=== PATIENT | female | born 1950 | race Caucasian/White ===

== ENCOUNTER 2016-06-02 09:46 | Day surgery (SDC) | payer MEDICARE, BC ==
--- NOTE | ~2016-06-02 | EGD ---
EGD REPORT [facility] [address] [id number] NAME: THAD CORTÉS : [birth year] STATUS : REG [facility]#: [id number] AGE: 65 ADM/REG DATE : 06/02/16 MR#: [id number] REPORT SERV DATE: 06/02/16 DICTATED BY: SHAYNA ROD DATE: 06/02/16 REPORT STATUS : Draft [facility]ANS[facility]IBED BY: [facility] DATE: 06/02/16 [facility] Center Patient Name: Thad Cortés Date of : 1950 Attending MD: SHAYNA ROD MD Procedure Date No Time: 06/02/2016 Procedure: Upper GI endoscopy Indications: Iron deficiency anemia, Follow-up of gastrointestinal bleeding Referring MD: Brian Cardenas Medicines: Sedation Required Anesthesia Staff Assistance Complications: No immediate complications. Estimated blood loss: Minimal. Procedure: Pre-Anesthesia Assessment: - ASA Grade Assessment: III - A patient with severe systemic disease. After obtaining informed consent, the endoscope was passed under direct vision. Throughout the procedure, the patient's blood pressure, pulse, and oxygen saturations were monitored continuously. The GIF [id number] was introduced through the mouth, and advanced to the second part of duodenum. The upper GI endoscopy was accomplished without difficulty. The patient tolerated the procedure well. Findings: The examined esophagus was normal. Multiple small angioectasias with stigmata of recent bleeding were found in the gastric antrum. Coagulation for bleeding prevention using argon plasma at 0.5 liters/minute and 20 sanchez was successful. Multiple small angioectasias without bleeding were found in the entire duodenum. Coagulation for bleeding prevention using argon plasma at 0.5 liters/minute and 20 sanchez was successful. Impression: - Normal esophagus. - Multiple recently bleeding angioectasias in the stomach. Treated with thermal therapy. - Multiple non-bleeding angioectasias in the duodenum. Treated with thermal therapy. Recommendation: - Patient has a contact number available for emergencies. The signs and symptoms of potential delayed complications were discussed with the patient. Return to normal activities tomorrow. Written discharge instructions were provided to the patient. EGD REPORT [address] [address] NAME: THAD CORTÉS : [birth year] STATUS : REG [facility] PAT#: [id number] AGE: 65 ADM/REG DATE : 06/02/16 MR#: [id number] REPORT SERV DATE: 06/02/16 DICTATED BY: SHAYNA ROD DATE: 06/02/16 REPORT STATUS : Draft TRANSCRIBED BY: [email or web address] DATE: 06/02/16 - Return to previous diet daily. - Patient has a contact number available for emergencies. The signs and symptoms of potential delayed complications were discussed with the patient. Return to normal activities tomorrow. Written discharge instructions were provided to the patient. - Continue present medications. - Discharge patient to home. Procedure Code(s): --- Professional --- 76172, Esophagogastroduodenoscopy, flexible, transoral; with control of bleeding, any method Diagnosis Code(s): --- Professional --- K31.811, Angiodysplasia of stomach and duodenum with bleeding D50.9, Iron deficiency anemia, unspecified CPT copyright 2013 [employer]. All rights reserved. The codes documented in this report are preliminary and upon hospitality workers review may be revised to meet current compliance requirements. SHAYNA ROD MD 06/02/2016 11:32 AM This report has been signed electronically. Number of Addenda: 0 Note Initiated On: 06/02/2016 11:12 AM Scope Withdrawal Time 0 hours 0 minutes 0 seconds [address] [place] [id number]
[~2016-06-02 09:46] MED LIST: ARMOUR THYRO60 MG PO; CO Q-10100 MG PO; DCN100 PO; DIABET2.5 PO; GGACUDL PO; GLUCOPHAGE1000 MG PO; GLUCPH PO; KLOR-CON 1010 MEQ PO; L40 PO; LEVOTHYROXIN112 MCG PO; MULTIVITAMI1 PO; MYRBETRIQ25 MG PO; PR12.5 PO; PRAVACHOL80 MG PO; PREDFORTE OPH; PROMEGA PO; PROTONIX PO; PROVENTSOL INH; SPIRO50 PO; SUCR PO; TRAZ100 PO; VITAMIN D1000 UNI1 PO; ZOCOR20 PO
== END 2016-06-02 23:59 | disposition home health service (06) ==
LOC: DMU 09:46
PROVIDERS: Internal Medicine Gastroenterology
PROC: 0DJ08ZZ Inspection of Upper Intestinal Tract, Via Natural or Artificial Opening Endoscopic (ICD-10-PCS; principal; 2016-06-02 12:00)
DX: K31.811 Angiodysplasia of stomach and duodenum with bleeding (principal); E66.9 Obesity, unspecified; K21.9 Gastro-esophageal reflux disease without esophagitis; E11.9 Type 2 diabetes mellitus without complications; E03.9 Hypothyroidism, unspecified; E78.00 Pure hypercholesterolemia, unspecified; M19.90 Unspecified osteoarthritis, unspecified site; Z90.710 Acquired absence of both cervix and uterus; Z87.891 Personal history of nicotine dependence; Z98.890 Other specified postprocedural states
CPT/HCPCS: 82962